=== PATIENT | male | born 1965 | race Caucasian/White ===

== ENCOUNTER 2021-09-21 14:13 | Inpatient (IN) | payer OTHER ==
[2021-09-21] MEDS ORDERED: METHOCARBAMOL 500 MG TABLET PO PRN (16:15)
[2021-09-21] MEDS ORDERED: BISMUTH SUBSALICYLATE 524 MG/30 ML PO PRN (16:15)
[2021-09-21] MEDS ORDERED: MAG HYDROX/AL HYDROX/SIMETH 30 ML UNIT-DOSE CUP PO PRN (16:15)
[2021-09-21] MEDS ORDERED: IBUPROFEN 400 MG TABLET (FP) PO PRN (16:15)
[2021-09-21] MEDS ORDERED: MAGNESIUM CITRATE 300 ML BOTTLE PO PRN (16:15)
[2021-09-21] MEDS ORDERED: MENTHOL/PHENOL 1 EACH UD MM PRN (16:15)
[2021-09-21] MEDS ORDERED: ONDANSETRON *ODT* 4 MG TABLET SL PRN (16:15)
[2021-09-21] MEDS ORDERED: ACETAMINOPHEN 325 MG TABLET (FP) PO PRN ×2 (16:15)
[2021-09-21] MEDS ORDERED: MAGNESIUM HYDROX 2400MG/30ML ORAL SUSPENSION 30 ML CUP PO PRN (16:15)
[2021-09-21] MEDS: hydrOXYzine PAMOATE 25 MG CAPSULE (FP) PO SCH ×2 (19:28→22:16)
[2021-09-21] MEDS ORDERED: INSULIN GLARGINE HUM REC ANLOG SQ SCH (22:00)
[2021-09-21] MEDS ORDERED: [UNRECOGNIZED DRUG - OTHER] SQ SCH (22:00)
[2021-09-21] MEDS: MELATONIN 5 MG TABLETS PO SCH (22:16)
[2021-09-21] MEDS: ATORVASTATIN CA 40 MG TABLET (FP) PO SCH (22:17)
[2021-09-21] MEDS: metFORMIN HCL 500 MG TABLET (FP) PO SCH (22:17)
[2021-09-21] MEDS: THIAMINE HCL 100 MG TABLET (FP) PO SCH (22:17)
[2021-09-21] MEDS: INSULIN (LEVEMIR) 100 UNITS/ML UNITS SQ SCH (22:22)
[2021-09-21 22:45] VITALS: BMI 38.0
[2021-09-22] MEDS: hydrOXYzine PAMOATE 25 MG CAPSULE (FP) PO SCH ×6 (05:45→22:26)
[2021-09-22] MEDS: NICOTINE 10 MG CARTRIDGE (INHALER) IH PRN ×2 (06:15→11:25)
[2021-09-22] MEDS: metFORMIN HCL 500 MG TABLET (FP) PO SCH ×2 (07:55→22:29)
[2021-09-22] MEDS ORDERED: PATIENT'S OWN MEDICATION (NON-FORMULARY) (Lisinopril [Lisinopril] 40 MG Tablet) PO SCH (10:00)
[2021-09-22] MEDS ORDERED: methaDONE HCL 10 MG TABLET (FOR DETOX USE ONLY) PO ONE (10:13)
[2021-09-22] MEDS ORDERED: cloNIDine HCL 0.1 MG TABLET PO PRN (10:13)
[2021-09-22] MEDS: LISINOPRIL 20 MG TABLET PO SCH (10:56)
[2021-09-22] MEDS: PRENATAL VITAMINS W/ FOLIC ACID TABLET (FP) PO SCH (10:57)
[2021-09-22] MEDS: CLOPIDOGREL BISULFATE 75 MG TABLET (FP) PO SCH (10:57)
[2021-09-22 11:37] LABS: ALBUMIN 3.4 g/dl (3.4-5.0); CALCIUM 9.2 mg/dL (8.5-10.1)
[2021-09-22 11:38] LABS: BLOOD UREA NITROGEN 18.9 mg/dL (7-18)
[2021-09-22 11:41] LABS: CREATININE 0.9 mg/dL (0.55-1.3)
[2021-09-22 11:42] LABS: BILIRUBIN,TOTAL 0.4 mg/dL (0.2-1); TOT PROT 6.9 g/dl (6.4-8.2)
[2021-09-22] MEDS: metoPROLOL SUCCINATE 25 MG TAB.SR.24H (FP) PO SCH (12:06)
[2021-09-22 12:42] LABS: HEMATOCRIT 42.1 % (35.4-49); HEMOGLOBIN 14.3 GM/dL (11.7-16.9); MCH 30.1 pg (25.7-33.7); MCHC 33.9 g/dl (32.0-35.9); MEAN CELL VOLUME 88.6 fl (80-96); MEAN PLT VOLUME 9.4 fl (7.5-11.1); PLATELET COUNT 164 10^3/uL (134-434); RBC 4.75 M/mm3 (4.00-5.60); RDW 13.4 % (11.9-15.9); WHITE BLOOD COUNT 5.4 K/mm3 (4.0-10.0)
[2021-09-22] MEDS ORDERED: FLU VACC QS2021-22(6MOS UP)/PF 60 MCG/0.5 ML SYRINGE IM ONE ×2 (13:00→15:00)
[2021-09-22 14:17] LABS: HIV INTERPRETATION NEGATIVE (NEGATIVE)
[2021-09-22] MEDS: THIAMINE HCL 100 MG TABLET (FP) PO SCH (22:26)
[2021-09-22] MEDS: INSULIN (LEVEMIR) 100 UNITS/ML UNITS SQ SCH (22:26)
[2021-09-22] MEDS: MELATONIN 5 MG TABLETS PO SCH (22:26)
[2021-09-22] MEDS: ATORVASTATIN CA 40 MG TABLET (FP) PO SCH (22:26)
[2021-09-23] MEDS: hydrOXYzine PAMOATE 25 MG CAPSULE (FP) PO SCH ×5 (06:07→22:07)
[2021-09-23] MEDS: metFORMIN HCL 500 MG TABLET (FP) PO SCH ×2 (08:12→22:06)
[2021-09-23] MEDS ORDERED: methaDONE HCL 10 MG TABLET (FOR DETOX USE ONLY) ONE (09:26)
[2021-09-23] MEDS: LISINOPRIL 20 MG TABLET PO SCH (10:07)
[2021-09-23] MEDS: CLOPIDOGREL BISULFATE 75 MG TABLET (FP) PO SCH (10:07)
[2021-09-23] MEDS: metoPROLOL SUCCINATE 25 MG TAB.SR.24H (FP) PO SCH (10:08)
[2021-09-23] MEDS: PRENATAL VITAMINS W/ FOLIC ACID TABLET (FP) PO SCH (10:50)
[2021-09-23] MEDS: NICOTINE 10 MG CARTRIDGE (INHALER) IH PRN (11:18)
[2021-09-23] MEDS ORDERED: MELATONIN 5 MG TABLETS PO SCH (15:20)
[2021-09-23] MEDS: INSULIN (LEVEMIR) 100 UNITS/ML UNITS SQ SCH (22:06)
[2021-09-23] MEDS: ATORVASTATIN CA 40 MG TABLET (FP) PO SCH (22:07)
[2021-09-23] MEDS: THIAMINE HCL 100 MG TABLET (FP) PO SCH (22:07)
[2021-09-24] MEDS: hydrOXYzine PAMOATE 25 MG CAPSULE (FP) PO SCH (05:33)
[2021-09-24] MEDS: NICOTINE 10 MG CARTRIDGE (INHALER) IH PRN (05:41)
[2021-09-24] MEDS ORDERED: amLODIPine BESYLATE 10 MG TABLET (FP) PO SCH (06:00)
[2021-09-24] MEDS: metFORMIN HCL 500 MG TABLET (FP) PO SCH (08:01)
[2021-09-24 08:50] VITALS: BP 151/76; PULSE 50; TEMP 96.9
[2021-09-24] MEDS ORDERED: methaDONE HCL 10 MG TABLET (FOR DETOX USE ONLY) PO ONE (10:00)
[2021-09-26] MEDS ORDERED: methaDONE HCL 10 MG TABLET (FOR DETOX USE ONLY) PO ONE (10:00)
== END 2021-09-24 09:31 | disposition left against medical advice (07) | DRG 894 ==
LOC: YASAS 14:13 → Y6N 18:49
PROVIDERS: ADMIT Allergy & Immunology; ATTEND Allergy & Immunology
PROC: HZ2ZZZZ Detoxification Services for Substance Abuse Treatment (ICD-10-PCS; principal; 2021-09-21)
DX: F10.230 Alcohol dependence with withdrawal, uncomplicated (principal); F17.213 Nicotine dependence, cigarettes, with withdrawal; I10 Essential (primary) hypertension; I25.10 Atherosclerotic heart disease of native coronary artery without angina pectoris; E11.65 Type 2 diabetes mellitus with hyperglycemia; Z98.1 Arthrodesis status; Z95.2 Presence of prosthetic heart valve; Z79.4 Long term (current) use of insulin; Z79.84 Long term (current) use of oral hypoglycemic drugs
CPT/HCPCS: 36415; 80053; 82962; 85027; 86780; 87389; 90686; C9803; G0008; J0735; U0003; U0005